=== PATIENT | female | born 1975 | race Caucasian/White ===

== ENCOUNTER 2016-05-01 12:55 | Emergency (ER) | payer OTHER ==
[~2016-05-01 12:55] MED LIST: LITH150C7 PO; TRAZ100T50 PO
[2016-05-01] MEDS ORDERED: ZOLO50TA PO (13:56)
[2016-05-01] MEDS ORDERED: GUAI1SOL3 PO (14:09)
[2016-05-01] MEDS ORDERED: [UNRECOGNIZED DRUG - CODE] LEFT EAR (14:09)
[2016-05-01] MEDS ORDERED: PROM25TA5 PO (14:09)
--- NOTE | 2016-05-01 14:21 | PD ---
HPI Chief Complaint Cough and upper respiratory symptoms nausea and vomiting Date Seen: May 01, 2016 Travel History International Travel<30 Days: No Contact w/Intl Traveler<30Days: No Known Affected Area: No History of Present Illness HPI 40-year-old white female 23 weeks previous section followed by Dr. Limon is here for upper respiratory symptoms cough discomforts Para: 4 : 5 History Past Medical History Narrative Medical PTSD, asthma as a child Obstetric History Obstetric History 3 vaginal deliveries then section for previa Family History Family History: Social History Alcohol Use: No Tobacco Use: No Substance Abuse: No Allergies-Medications (Allergen,Severity, Reaction): Coded Allergies: No Known Allergies (Verified , 03/26/08) Home Meds Active Scripts Homeopathic Products (Ear Pain Relief Homeopath)1 Steven Dro2 Drop LEFT EAR Q8HR PRN (PAIN SCALE 1 TO 4) 5 Days Prov:Carlos A Mcqueen II, MD 05/01/16 Guaifenesin-Codeine (Codeine/Guaifenesin 100-10 mg/5Ml)1 Nicky Sol5 Ml PO BID 5 Days Prov:Carlos A Mcqueen II, MD 05/01/16 Promethazine (Phenergan)25 Mg Tab25 Mg PO Q6H PRN (Nausea/Vomiting) #28 TAB Ref 0 Prov:Carlos A Mcqueen II, MD 05/01/16 Reported Medications Sertraline (Zoloft)50 Mg Tab50 Mg PO DAILY #30 TAB Ref 0 05/01/16 Discontinued Reported Medications Trazodone Hcl (Desyrel)100 Mg [id number] Mg PO HS Ref 0 03/26/08 [place] Carbonate 150 Mg [id number] Mg PO HS Ref 0 03/26/08 [place] Carbonate 150 Mg [id number] Mg PO DAILY Ref 0 UNKNOWN DOSE 03/26/08 Review of Systems General / Constitutional: No: Fever, Weight Gain, Chills, Other Eyes: No: Diploplia, Blurred Vision, Visual changes, Pain, Photophobia HENT: No: Headaches, Vertigo, Lightheadedness Cardiovascular: No: Irregular Rhythm, Chest Pain or Discomfort, Palpitations, Tachycardia, Syncope, Varicosities, Edema, Cyanosis Respiratory: Cough, No: Short of Breath, Other Gastrointestinal: Nausea, Vomiting, Diarrhea, Abdominal Pain Genitourinary: No: Decreased Urinary Output, Oliguria Musculoskeletal: No: Limited ROM, Weakness, Cramping, Edema, Pain Skin: No Rash, No Itching, No Dryness, No Lumps, No Change in Pigmentation, No Change in Nails, No Alopecia, No Lesions Neurologic: No: Weakness, Dizziness, Syncope, Focal Abnormalities, Coordination Problem, Headache, Slurred Speech, Seizures Psychiatric: No: Depression, Suicidal Ideations, Homicidal Ideation Endocrine: No: Heat Intolerance, Cold Intolerance, Polydipsia, Polyuria, Other Physical Exam Narrative GENERAL: Well-nourished, well-developed patient. SKIN: Warm and dry. HEAD: Normocephalic and atraumatic. EYES: No scleral icterus. No injection or drainage. ENT: No nasal drainage noted. Mucous membranes pink. Airway patent.left ear painful NECK: Supple, trachea midline. No JVD. CARDIOVASCULAR: Regular rate and rhythm without murmurs, gallops, or rubs. RESPIRATORY: Breath sounds equal bilaterally. No accessory muscle use. clear BREASTS: Bilateral exam showed no masses , no retractions, no nipple discharge. ABDOMEN/GI: Abdomen soft, non-tender, bowel sounds present, no rebound, no guarding Gravid to [-23] weeks size Fundal Height: [-23] GENITOURINARY: External Genitalia: intact and normal in appearance BUS glands: [-] Cervix: [-] Dilatation: [-closed] Effacement: [thick-] Station: [-3] Membranes: [intact Uterine Contractions: [-none] FHT's: 150 EXTREMITIES: No cyanosis or edema. BACK: Nontender without obvious deformity. No CVA tenderness. NEUROLOGICAL: Awake and alert. Motor and sensory grossly within normal limits. Five out of 5 muscle strength in all muscle groups. Normal speech. MDM Interpretation(s) 40-year-old white female previous now 23 weeks who presents with upper respiratory symptoms and severity of cough minimal cramping. No bleeding or leakage of fluid. Tones 150. Cervix is closed and long. Lungs are clear to auscultation her throat is negative for any exudates swelling or redness. Patient's on Augmentin for this problem and will finish out the course , only a prescription for Phenergan pain based cough syrup and eardrops for pain Plan Plan is dictated above Diagnosis Diagnosis: Primary Impression: URI (upper respiratory infection) Additional Impression: Cough Disposition: 01 DISCHARGE HOME Condition: Stable Scripts Homeopathic Products (Ear Pain Relief Homeopath)1 Steven Dro2 Drop LEFT EAR Q8HR PRN (PAIN SCALE 1 TO 4) 5 Days Prov:Carlos A Mcqueen II, MD 05/01/16 Guaifenesin-Codeine (Codeine/Guaifenesin 100-10 mg/5Ml)1 Nicky Sol5 Ml PO BID 5 Days Prov:Carlos A Mcqueen II, MD 05/01/16 Promethazine (Phenergan)25 Mg Tab25 Mg PO Q6H PRN (Nausea/Vomiting) #28 TAB Ref 0 Prov:Carlos A Mcqueen II, MD 05/01/16 Carlos A Mcqueen II, MD May 01, 2016 14:21
== END 2016-05-01 14:30 | disposition home or self-care (01) ==
LOC: HOBED 12:55
DX: O09.522 Supervision of elderly multigravida, second trimester (principal); O34.219 Maternal care for unspecified type scar from previous cesarean delivery; J06.9 Acute upper respiratory infection, unspecified; Z3A.23 23 weeks gestation of pregnancy; R11.2 Nausea with vomiting, unspecified
CPT/HCPCS: 99283

== ENCOUNTER → 2016-06-16 | Outpatient (CLI) | payer OTHER ==
[~2016-06-16] MED LIST changes: +GUAI1SOL3 PO; -LITH150C7 PO; +PROM25TA5 PO; -TRAZ100T50 PO; +ZOLO50TA PO; +[UNRECOGNIZED DRUG - CODE] LEFT EAR
== END ==
LOC: HPND 07:46
PROVIDERS: ATTEND Obstetrics & Gynecology
DX: O09.523 Supervision of elderly multigravida, third trimester (principal); Z3A.30 30 weeks gestation of pregnancy
CPT/HCPCS: 76816; 76817